=== PATIENT | female | born 1985 | race African-American/Black ===

== ENCOUNTER 2020-03-13 07:35 | Inpatient (IN) | payer MEDICARE, MEDICAID ==
[2020-03-13 08:59] LABS: HEMATOCRIT 29.3 % (36.0-47.0); HEMOGLOBIN 9.8 g/dL (12.0-15.5); MEAN CORPUSCULAR HEMOGLOBIN 29.5 pg (27.0-33.4); MEAN CORPUSCULAR HGB CONC 33.3 g/dL (32.0-36.0); MEAN CORPUSCULAR VOLUME 89 fl (80-97); RED CELL DISTRIBUTION WIDTH 15.6 % (11.5-14.0); WHITE BLOOD COUNT 14.6 10^3/uL (4.0-10.5)
[2020-03-13 09:13] LABS: ALBUMIN 4.5 g/dL (3.5-5.0); ALKALINE PHOSPHATASE 129 U/L (38-126); ASPARTATE AMINO TRANSFERASE 20 U/L (14-36); BLOOD UREA NITROGEN 51 mg/dL (7-20); CARBON DIOXIDE 17 mmol/L (22-30)
[2020-03-13 09:17] LABS: BILIRUBIN,DIRECT 0.5 mg/dL (0.0-0.4); BILIRUBIN,TOTAL 0.8 mg/dL (0.2-1.3); CALCIUM 8.7 mg/dL (8.4-10.2); GLUCOSE 160 mg/dL (75-110); POTASSIUM 4.8 mmol/L (3.6-5.0)
[2020-03-13 09:23] LABS: ABSOLUTE LYMPHOCYTES# (MANUAL) 0.1 10^3/uL (0.5-4.7); ABSOLUTE MONOCYTES # (MANUAL) 0.1 10^3/uL (0.1-1.4); BASOPHILS % (MANUAL) 0 % (0-2); EOSINOPHILS % (MANUAL) 0 % (0-6); LYMPHOCYTES % (MANUAL) 1 % (13-45); MONOCYTES % (MANUAL) 1 % (3-13); SEGMENTED NEUTROPHILS % (MAN) 98 % (42-78); TOTAL CELLS COUNTED 100
[2020-03-13 09:24] LABS: ANISOCYTOSIS SLIGHT
[2020-03-13 09:25] LABS: BURR CELLS SLIGHT; PLATELET CLUMPS PRESENT; PLATELET COMMENT ADEQUATE; POIKILOCYTOSIS SLIGHT; POLYCHROMASIA SLIGHT
[2020-03-13 09:26] LABS: PLATELET COUNT 290 10^3/uL (150-450)
--- NOTE | 2020-03-13 09:31 | RADIOLOGY REPORT (SQ) ---
EXAM DESCRIPTION: CHEST SINGLE VIEW IMAGES COMPLETED DATE/TIME: 03/13/2020 9:18 am REASON FOR STUDY: cough COMPARISON: None. EXAM PARAMETERS: NUMBER OF VIEWS: One view. TECHNIQUE: Single frontal radiographic view of the chest acquired. RADIATION DOSE: NA LIMITATIONS: None. FINDINGS: LUNGS AND PLEURA: Multifocal bibasilar predominant consolidation ground-glass attenuation, left greater than right. No significant effusion. No pneumothorax. MEDIASTINUM AND HILAR STRUCTURES: No masses. Contour normal. HEART AND VASCULAR STRUCTURES: Borderline enlarged, likely accentuated by portable technique. BONES: No acute findings. HARDWARE: Right axillary surgical clips. OTHER: No other significant finding. IMPRESSION: Bibasilar predominant consolidation and ground-glass attenuation which may represent jerson ma or multifocal infectious/inflammatory process of which viral pneumonia (Covid-19) is a considerati on. Findings discussed with Dr. Ramirez at 0925 hours on 03/13/2020. TECHNICAL DOCUMENTATION: JOB ID: [id number] 2010 [employer]- All Rights Reserved Reading location - IP/workstation name: [email or web address]
[2020-03-13 09:38] LABS: CHLORIDE 102 mmol/L (98-107)
[2020-03-13 09:43] LABS: ANION GAP 21 (5-19)
[2020-03-13] MEDS ORDERED: NITROGLYCERIN 2% OINTMENT 1 GM PACKET TP ONE (09:44)
--- NOTE | 2020-03-13 10:21 | ER Document Report ---
Entered by PARISH CATALAN SCRIBE 03/13/20 0944 Acting as scribe for:JASSON MARRERO MD ED Respiratory Problem - General Chief Complaint: Shortness Of Breath Stated Complaint: SHORTNESS OF BREATH Time Seen by Provider: 03/13/20 09:10 Mode of Arrival: Ambulatory Information source: Patient Notes: This 34 year old female patient presents to the emergency department today with complaints of shortness of breath since last night. Patient states that she also developed nausea and vomiting last night when the shortness of breath began. Patient states that she has also has had left sided facial swelling and pain and she was told it was an abscess and she was supposed to call the dentist today but she did not do that. Patient is a M/W/F dialysis patient and she has not yet been dialyzed today. She was sent here from dialysis this morning. The patient gave registration her current name, therefore all her old records cannot be accessed through this chart. Her previous name was Arianna Sutton . - Related Data Allergies/Adverse Reactions: hydrocodone [From Vicodin] Allergy (Verified 03/13/20 07:58) Past Medical History - General Information source: Patient - Social History Smoking Status: Never Smoker Cigarette use (# per day): No Chew tobacco use (# tins/day): No Frequency of alcohol use: None Drug Abuse: None Lives with: Family Family History: Reviewed & Not Pertinent Patient has homicidal ideation: No Renal/ Medical History: Reports: Hx End Stage Renal Disease Surgical Hx: Negative Review of Systems - Review of Systems Constitutional: No symptoms reported EENT: See HPI, Mouth pain, Mouth swelling, Dental problem Cardiovascular: No symptoms reported Respiratory: See HPI, Short of breath Gastrointestinal: See HPI, Nausea, Vomiting Genitourinary: No symptoms reported Female Genitourinary: No symptoms reported Musculoskeletal: No symptoms reported Skin: No symptoms reported Hematologic/Lymphatic: No symptoms reported Neurological/Psychological: No symptoms reported -: Yes All other systems reviewed and negative Physical Exam - Vital signs Vitals: Temp 99.4 F 03/13/20 07:48 - Notes Notes: Physical Exam: General: Alert, anxious, appears short of breath but is able to speak in multi- word sentences. HEENT: Normocephalic. Atraumatic. PERRL. Extraocular movements intact. Oropharynx clear. Area of induration consistent with abscess to left lower jaw below the premolar gumline. There is associated facial swelling over this area. Neck: Supple. Non-tender. Respiratory: Moderate respiratory distress. Diminished at the bases bilaterally. Cardiovascular: Tachycardic, regular rhythm. Abdominal: Normal Inspection. Non-tender. No distension. Normal Bowel Sounds. Back: No gross abnormalities. Extremities: Moves all four extremities. Upper extremities: Normal inspection. Normal ROM. Lower extremities: Normal inspection. No edema. Normal ROM. Neurological: Normal cognition. AAOx4. Normal speech. Psychological: anxious Skin: Warm. Dry. Normal color. Course - Re-evaluation Re-evalutation: 03/13/20 09:48 On initial exam, the patient is tachycardic, hypertensive, has a pulse ox of 95% on 5 L nasal cannula. The patient does have a fluctuant abscess in her left lower gumline under the premolars. It is easily accessible for drainage with an 18-gauge needle, but th e patient refuses to allow this to be done. Nurses have made multiple attempts for IV access, but cannot get any catheters to flush. The chest x-ray radiology impression was bibasilar predominant consolidation and groundglass attenuation which may represent edema, or multifocal infectious/inflammatory process of which viral pneumonia (COVID-19) is a consideration. I did discuss the case with Dr. Nance to make him aware of the patient and her status. He requested that she be admitted to the ICU, and he will arrange dialysis. I next spoke with Dr. Raymundo the ICU typing section chief. He wanted to see the patient before making any decisions about admission status. I did ask if he would help with IV access, as I am not trained in ultrasound guided vascular access. Dr. Raymundo said he would be happy to come see the patient and evaluate her. In the interim, I am having the nurse apply nitroglycerin ointment to help with the patient's blood pressure, and possible pulmonary edema. - Vital Signs Vital signs: Temp Pulse Resp BP Pulse Ox 101.3 F H 34 H 168/101 H 91 L 03/13/20 12:00 03/13/20 12:30 03/13/20 12:30 03/13/20 12:30 - Laboratory Result Diagrams: 03/13/20 08:20 03/13/20 08:20 Laboratory results interpreted by me: 03/13/20 03/13/20 03/13/20 08:20 08:20 11:45 WBC 14.6 H RBC 3.30 L Hgb 9.8 L Hct 29.3 L RDW 15.6 H Seg Neuts % (Manual) 98 H Lymphocytes % (Manual) 1 L Monocytes % (Manual) 1 L Abs Neuts (Manual) 14.3 H Abs Lymphs (Manual) 0.1 L Carbon Dioxide 17 L Anion Gap 21 H BUN 51 H Creatinine 12.56 H Est GFR ( Amer) 4 L Est GFR (MDRD) Non-Af 3 L Glucose 160 H Direct Bilirubin 0.5 H Alkaline Phosphatase 129 H NT-Pro-B Natriuret Pep 80721 H - Diagnostic Test Radiology reviewed: Image reviewed, Reports reviewed - Chest x-ray shows bibasilar predominant consolidation and groundglass attenuation which may represent edema or multifocal infectious/inflammatory process of which viral pneumonia (COVID19) is a consideration. - EKG Interpretation by Me EKG shows normal: Sinus rhythm, [place], Intervals, QRS Complexes, ST-T Waves Rate: Tachycardia - 114 P Waves: LAE Critical Care Note - Critical Care Note Total time excluding time spent on procedures (mins): 45 Comments: At least 45 minutes spent examining the patient, reviewing records, reevaluating the patient, and sorting out the confusion over her registering under multiple names. Discussions with Dr. Nance, Dr. Raymundo, Dr. Bocanegra, and Dr. Chapman. The patient will be initially admitted to the intensive care unit to get her dialysis done, and then moved to the intermediate care unit. Rapid COVID testing will be done prior to the patient leaving the intensive care unit. Discharge - Discharge Clinical Impression: Respiratory distress, ESRD (end stage renal disease) on dialysis, Dental abscess, Aspiration pneumonia due to inhalation of vomitus, Suspected COVID-19 virus infection Pneumonia Qualifiers: Pneumonia type: due to unspecified organism Laterality: bilateral Lung location: unspecified part of lung Qualified Code(s): J18.9 - Pneumonia, unspecified organism Sepsis Qualifiers: Sepsis type: sepsis due to unspecified organism Sepsis acute organ dysfunction status: with acute organ dysfunction Severe sepsis acute organ dysfunction type: acute respiratory failure Acute respiratory failure type: with hypoxia Severe sepsis shock status: without septic shock Qualified Code(s): A41.9 - Sepsis, unspecified organism; R65.20 - Severe sepsis without septic shock; J96.01 - Acute respiratory failure with hypoxia Nausea and vomiting Qualifiers: Vomiting type: unspecified Vomiting Intractability: non-intractable Qualified Code(s): R11.2 - Nausea with vomiting, unspecified Fever Qualifiers: Fever type: unspecified Qualified Code(s): R50.9 - Fever, unspecified Condition: Fair Disposition: ADMITTED INPATIENT Admitting Provider: Ari (Hospitalist) Unit Admitted: IMCU I personally performed the services described in the documentation, reviewed and edited the documentation which was dictated to the scribe in my presence, and it accurately records my words and actions.
[2020-03-13] MEDS ORDERED: AZITHROMYCIN INJ 500 MG VIAL IV ONE (10:34)
[2020-03-13] MEDS ORDERED: ONDANSETRON HCL INJ/PF 4 MG/2 ML SDV IV ONE (10:34)
[2020-03-13] MEDS ORDERED: LORAZEPAM INJ 2 MG/1 ML VIAL IV ONE (10:34)
[2020-03-13] MEDS ORDERED: CEFTRIAXONE 1 GM/D5W RTU 1 GM/50 ML RTUPB IV ONE (10:35)
--- NOTE | 2020-03-13 10:43 | EKG REPORT ---
SEVERITY:- BORDERLINE ECG - SINUS TACHYCARDIA PROBABLE LEFT ATRIAL ABNORMALITY : Confirmed by: Hugo Lebron MD 13-Mar-2020 10:42:56
[2020-03-13] MEDS: HYDRALAZINE HCL INJ/PF 20 MG/1 ML SDV IV PRN (12:10)
[2020-03-13] MEDS ORDERED: ONDANSETRON HCL INJ/PF 4 MG/2 ML SDV IV PRN (12:15)
[2020-03-13] MEDS ORDERED: ACETAMINOPHEN 325 MG TABLET PO ONE (12:16)
[2020-03-13] MEDS ORDERED: BENZONATATE 100 MG CAPSULE PO ONE (12:24)
--- NOTE | 2020-03-13 12:25 | PDOC CRITICAL CARE PROG REPORT ---
General Date:: 03/13/20 Hospital Day:: 1 Resuscitation Status: Full Code Events in the past 12 to 24 Hours:: SOB, probable aspiration and needs HD Review of systems relevant to events:: Pulmonary, renal. Reason for ICU Addmission:: Evaluation. - Medications: Medications reviewed and adjusted accordingly: Yes Vasopressors:: None Sedation:: None Physical Exam Vital Signs: Temp Pulse Resp BP Pulse Ox 99.4 F 25 H 195/101 H 91 L 03/13/20 07:49 03/13/20 10:36 03/13/20 10:36 03/13/20 10:36 Intake & Output 03/12/20 03/13/20 03/14/20 06:59 06:59 06:59 Weight 80.9 kg Weight/Height Weight 80.9 kg Height 5 ft 5 in General appearance: PRESENT: mild distress Head exam: PRESENT: atraumatic, normocephalic Eye exam: PRESENT: conjunctiva pink, EOMI, PERRLA. ABSENT: scleral icterus Ear exam: PRESENT: normal external ear exam Mouth exam: PRESENT: moist, tongue midline Respiratory exam: PRESENT: crackles, decreased breath sounds Cardiovascular exam: PRESENT: tachycardia GI/Abdominal exam: PRESENT: normal bowel sounds, soft. ABSENT: distended, guarding, mass, organolmegaly, rebound, tenderness Rectal exam: PRESENT: deferred Extremities exam: PRESENT: full ROM. ABSENT: calf tenderness, clubbing, pedal edema Neurological exam: PRESENT: alert, awake, oriented to person, oriented to place, oriented to time, oriented to situation, CN II-XII grossly intact. ABSENT: motor sensory deficit Psychiatric exam: PRESENT: anxious Skin exam: PRESENT: dry, intact, warm. ABSENT: cyanosis, rash Laboratory/Radiographs Laboratory Results: 03/13/20 08:20 03/13/20 08:20 03/13/20 03/13/20 03/13/20 08:20 08:20 08:20 WBC 14.6 H RBC 3.30 L Hgb 9.8 L Hct 29.3 L MCV 89 MCH 29.5 MCHC 33.3 RDW 15.6 H Plt Count 290 Seg Neutrophils % Not Reportable Sodium 140.4 Potassium 4.8 Chloride 102 Carbon Dioxide 17 L Anion Gap 21 H BUN 51 H Creatinine 12.56 H Est GFR ( Amer) 4 L Glucose 160 H Lactic Acid 1.0 Calcium 8.7 Total Bilirubin 0.8 AST 20 Alkaline Phosphatase 129 H Total Protein 8.0 Albumin 4.5 Impressions: Chest X-Ray 03/13/20 07:56 IMPRESSION: Bibasilar predominant consolidation and ground-glass attenuation which may represent edema or multifocal infectious/inflammatory process of which viral pneumonia (Covid-19) is a consideration. Findings discussed with Dr. Ramirez at 0925 hours on 03/13/2020. All labs, radiographs, diagnostic studies and EKGs were personally reviewed: Yes In addition, reports of radiographic and diagnostic studies were read: Yes Assessment and Plan Plan Summary: At this point the ptient needs dialysis. She probably aspirated as well with all the vomiting she did last night. I doubt COVID. She is very anxious as well. All of this is contributing to both subjective and objective SOB. More than anything she needs HD. I have talked to Dr. Nance and due to the difficult logistics she can be dialysed in the ICU then transferred. She is not in need of the ICU right now. She is on nasal canulla. Should she require intubation if her aspiration worsens than a reconsult would be warranted. Critical Time Critical Time (minutes): 30 Level of Care: IMCU Anticipated discharge: Home Within: Other -: 1. The care of a critical patient is a dynamic process. This note is a union representative synopsis but static in nature. The timeframe for treatments given in order is not necessarily the actual time these treatments may have been done. 2. This patient requires critical care secondary to ongoing requirements for therapy not offered or safe outside the critical care environment. Transfer to a lower level of care will result in altered life or limb morbidity and mortality. 3. Multidisciplinary rounds completed. 4. ABCDE bundle addressed.
[2020-03-13] MEDS: ACETAMINOPHEN 325 MG TABLET PO PRN ×2 (12:30→21:20)
--- NOTE | 2020-03-13 12:31 | PDOC H&P ---
History of Present Illness History of Present Illness: CALLY SINGH is a 34 year old female with a history of hypertension and ESRD who said that she was in her usual state of health until Friday. She said that she noticed some pain and swelling in her left lower jaw had been increasing over a few days. She is not had any fevers. She is not noticed any drainage, but she noted that it was getting more difficult to chew on that side. She said she started to get sick to her stomach yesterday and was feeling worse as the day went on. She said she vomited several times last night and she choked on her vomit at one point last night during a particularly nasty episode. She was short of breath at dialysis and hypertensive today. She says she is not taking her medicines in the past couple of days because she felt sick to her stomach. She said she went to dialysis this morning and they sent her to the ER. She said that at dialysis she was only 0.1 pounds over her dry weight this morning. In the ER she was very hypertensive with her blood pressures in the 190s over 100s. She denies any chest pain. She was a little hypoxic and was put on 2 L per nasal cannula. She was noted to have multiple hazy opacities on chest x-ray and a very broad differential was given. She has not been around anyone that she knows to be sick. She said she was only around her family this weekend and none of them displayed any symptoms of any illness. Past Medical History Renal/ Medical History: Reports: End Stage Renal Disease Social History Lives with: Family Smoking Status: Never Smoker Electronic Cigarette use?: No - Advance Directive Resuscitation Status: Full Code Family History Family History: Reviewed & Not Pertinent, COPD, Hyperlipidemia, Hypertension, Thyroid Disfunction Parental Family History Reviewed: Yes Children Family History Reviewed: Yes Sibling(s) Family History Reviewed.: Yes Medication/Allergy Allergies/Adverse Reactions: hydrocodone [From Vicodin] Allergy (Verified 03/13/20 07:58) Review of Systems All systems: reviewed and no additional remarkable complaints except as stated - All systems were reviewed and were negative except as noted in the HPI Physical Exam Vital Signs: Temp Pulse Resp BP Pulse Ox 101.3 F H 27 H 176/95 H 88 L 03/13/20 12:00 03/13/20 12:00 03/13/20 12:00 03/13/20 12:00 Intake & Output 03/12/20 03/13/20 03/14/20 06:59 06:59 06:59 Intake Total 50 Balance 50 Weight 80.9 kg General appearance: PRESENT: no acute distress, cooperative, disheveled, obese, other - Looks fatigued Head exam: PRESENT: atraumatic, normocephalic Eye exam: PRESENT: EOMI, PERRLA. ABSENT: conjunctival injection, nystagmus, scleral icterus Ear exam: PRESENT: normal external ear exam Mouth exam: PRESENT: dry mucosa, neck supple Teeth exam: PRESENT: other - Tenderness and facial swelling over her left mandible Throat exam: ABSENT: post pharyngeal erythema Neck exam: PRESENT: full ROM. ABSENT: carotid bruit, JVD, lymphadenopathy, meningismus, tenderness, thyromegaly Respiratory exam: PRESENT: rhonchi, symmetrical, tachypnea, unlabored. ABSENT: accessory muscle use, chest wall tenderness, crackles, prolonged expiratory phas, wheezes Cardiovascular exam: PRESENT: +S1, +S2, tachycardia Pulses: PRESENT: normal carotid pulses Vascular exam: PRESENT: normal capillary refill GI/Abdominal exam: PRESENT: normal bowel sounds, soft. ABSENT: distended, guarding, rebound, tenderness Extremities exam: ABSENT: clubbing, pedal edema Musculoskeletal exam: PRESENT: normal inspection. ABSENT: deformity Neurological exam: PRESENT: alert, awake, oriented to person, oriented to place, oriented to time, oriented to situation, CN II-XII grossly intact. ABSENT: motor sensory deficit Psychiatric exam: PRESENT: flat affect Skin exam: PRESENT: dry, warm Results Laboratory Results: 03/13/20 08:20 03/13/20 08:20 03/13/20 03/13/20 03/13/20 08:20 08:20 08:20 WBC 14.6 H RBC 3.30 L Hgb 9.8 L Hct 29.3 L MCV 89 MCH 29.5 MCHC 33.3 RDW 15.6 H Plt Count 290 Seg Neutrophils % Not Reportable Sodium 140.4 Potassium 4.8 Chloride 102 Carbon Dioxide 17 L Anion Gap 21 H BUN 51 H Creatinine 12.56 H Est GFR ( Amer) 4 L Glucose 160 H Lactic Acid 1.0 Calcium 8.7 Total Bilirubin 0.8 AST 20 Alkaline Phosphatase 129 H Total Protein 8.0 Albumin 4.5 03/13/20 03/13/20 09:33 09:33 Creatine Kinase 120 Troponin I Cancelled NT-Pro-B Natriuret Pep Cancelled Impressions: Chest X-Ray 03/13/20 07:56 IMPRESSION: Bibasilar predominant consolidation and ground-glass attenuation which may represent edema or multifocal infectious/inflammatory process of which viral pneumonia (Covid-19) is a consideration. Findings discussed with Dr. Ramirez at 0925 hours on 03/13/2020. Assessment and Plan - Diagnosis (1) Sepsis Qualifiers: Sepsis type: sepsis due to unspecified organism Sepsis acute organ dysfunction status: with acute organ dysfunction Severe sepsis acute organ dysfunction type: acute respiratory failure Acute respiratory failure type: with hypoxia Severe sepsis shock status: without septic shock Qualified Code(s): A41.9 - Sepsis, unspecified organism; R65.20 - Severe sepsis without septic shock; J96.01 - Acute respiratory failure with hypoxia Is this a current diagnosis for this admission?: Yes Plan: Due to a combination of things, namely her dental abscess and her aspiration pneumonia. I think she probably started getting sick from the dental abscess which caused her to have nausea and vomiting which caused the subsequent aspiration pneumonia. Because of her hypertension and respiratory issues we did not think that she needed a large fluid bolus. She is going to hemodialysis and she should be able to have any volume issues managed there. She was very close to her dry weight so I do not think she is dehydrated. I have started her empirically on Zosyn. We will monitor her organ function closely. (2) Aspiration pneumonia due to inhalation of vomitus Is this a current diagnosis for this admission?: Yes Plan: Initiated Zosyn. Will monitor respiratory status closely. (3) Nausea and vomiting Qualifiers: Vomiting type: unspecified Vomiting Intractability: non-intractable Qu alified Code(s): R11.2 - Nausea with vomiting, unspecified Is this a current diagnosis for this admission?: Yes Plan: PRN Zofran (4) Dental abscess Is this a current diagnosis for this admission?: Yes Plan: This should respond to Zosyn. We will have her follow-up with her dentist as an outpatient. (5) ESRD (end stage renal disease) on dialysis Is this a current diagnosis for this admission?: Yes Plan: Nephrology has been consulted for hemodialysis. (6) Hypertensive emergency Is this a current diagnosis for this admission?: Yes Plan: She has not had her blood pressure medications in a couple of days and so how much of what we are seeing on her chest x-ray is due to this is unclear because there are compounding factors. She is going to hemodialysis and we will get her started back on her oral medications. We also have PRN hydralazine. - Time Time Spent with patient: 35 or more minutes - Inpatient Certification Based on my medical assessment, after consideration of the patient's comorbidities, presenting symptoms, or acuity I expect that the services needed warrant INPATIENT care.: Yes I certify that my determination is in accordance with my understanding of Medicare's requirements for reasonable and necessary INPATIENT services [42 CFR 412.3e].: Yes Medical Necessity: Significant Comorbidiites Make Outpatient Treatment Too Risky, Need Close Monitoring Due to Risk of Patient Decompensation, Need For Continuous Telemetry Monitoring, Need for IV Antibiotics, Risk of Complication if Not Cared For in Hospital
[2020-03-13 12:36] LABS: TROPONIN I 0.032 ng/mL
[2020-03-13] MEDS: HEPARIN SOD (PORCINE) 5,000 UNIT/ML 1 ML VIAL SUBCUT SCH ×2 (15:18→22:20)
[2020-03-13] MEDS: PIPERACILLIN SODIUM/TAZOBACTAM 2.25 GM in NORMAL SALINE 50 ML IV SCH ×2 (15:18→22:20)
--- NOTE | 2020-03-13 17:53 | PDOC CONSULTATION ---
Consultation Consult Date: 03/13/20 Provider Consulted: Bull SOLARES Consult reason:: esrd in CHF for urgent hd. History of Present Illness Admission Date/PCP: 03/13/20 12:57 History of Present Illness: CALLY SINGH is a 34 year old female with history of ESRD in the background of hypertension and unfortunate history of noncompliance with diet, medications, fluid and hemodialysis treatments was admitted with a history of progressive pain and swelling of her left lower jaw that has been getting worse over the last few days. No history of any headaches, fever or chills. She also found that she was getting rather weak and progressively short of breath when she went for dialysis today and therefore she was therefore asked to go to the ER where she has been admitted. Chest x-ray revealed that she had groundglass like opacities along with features suggestive of congestive heart failure. Differential diagnosis included congestive heart failure/possible COVID pneumonia even though she gives no history of any recent high risk behavior patterns. Dr. Ramirez at the ER attempted to do an I&D of her very obvious abscess in the left lower jaw but she refused. Currently she has been admitted to the ICU given the fact that her COVID serology was pending and she is being dialyzed. She is undergoing dialysis without any issues. Vital signs shows that the blood pressure is rather quite high. She admits to being very anxious. Dialysis orders were reviewed with the treating dialysis nurse. Labs and medications were reviewed. Past Medical History Cardiac Medical History: Reports: Hypertension-primary Renal/ Medical History: Reports: End Stage Renal Disease, Secondary Hyperparathyroidism Psychiatric Medical History: Denies: Depression Hematology Medical History: Reports Anemia of Chronic Kidney Disease Social History Lives with: Family Smoking Status: Never Smoker Electronic Cigarette use?: No - Advance Directive Resuscitation Status: Full Code Family History Parental Family History Reviewed: Yes - Father with CKD stage V in the background of hypertension. Children Family History Reviewed: No Sibling(s) Family History Reviewed.: No Medication/Allergy Home Medications: Amlodipine Besylate [Norvasc 10 mg Tablet] 10 mg PO DAILY 03/13/20 Clonidine [Catapres-Tts 3 (0.3 mg/24 Hr) Transderm Patch] 1 patch TOP ARTHUR@1000 03/13/20 Hydralazine HCl 100 mg PO Q12 03/13/20 Promethazine HCl [Phenergan 25 mg Tablet] 25 mg PO TIDP PRN 03/13/20 Allergies/Adverse Reactions: hydrocodone [From Vicodin] Allergy (Verified 03/13/20 07:58) Review of Systems Constitutional: PRESENT: anorexia, fatigue, weakness. ABSENT: chills, fever(s), headache(s), night sweats Ears: ABSENT: hearing changes Nose, Mouth, and Throat: PRESENT: other - Progressive pain and swelling of left lower jaw and evaluations revealed that she has an abscess. ABSENT: mouth pain, sore throat Cardiovascular: PRESENT: dyspnea on exertion. ABSENT: chest pain, edema Respiratory: PRESENT: dyspnea. ABSENT: cough, hemoptysis Gastrointestinal: PRESENT: nausea. ABSENT: abdominal pain, bloating, coffee ground emesis, diarrhea, dysphagia, heartburn, hematemesis, vomiting Genitourinary: ABSENT: dysuria, hematuria Musculoskeletal: ABSENT: deformity, joint swelling Integumentary: ABSENT: lesions, pruritus, rash Neurological: ABSENT: abnormal gait, abnormal movements, abnormal speech, confusion, convulsions, frequent falls Endocrine: ABSENT: polydipsia Hematologic/Lymphatic: ABSENT: easy bruising, lymphadenopathy Physical Exam Vital Signs: Temp Pulse Resp BP Pulse Ox 100.2 F 104 H 27 H 109/77 92 03/13/20 13:44 03/13/20 13:44 03/13/20 16:35 03/13/20 16:35 03/13/20 16:35 Intake & Output 03/12/20 03/13/20 03/14/20 06:59 06:59 06:59 Intake Total 1100 Output Total 4351 Balance -3251 Weight 79.3 kg General appearance: PRESENT: mild distress Eye exam: PRESENT: EOMI, PERRLA Ear exam: PRESENT: normal external ear exam Neck exam: ABSENT: lymphadenopathy, tenderness, thyromegaly Respiratory exam: PRESENT: clear to auscultation baudilio, crackles, decreased breath sounds. ABSENT: rhonchi Cardiovascular exam: PRESENT: +S1, +S2 GI/Abdominal exam: PRESENT: normal bowel sounds, soft. ABSENT: organomegaly, tenderness Extremities exam: ABSENT: pedal edema Neurological exam: PRESENT: alert, awake, oriented to person, oriented to place Psychiatric exam: PRESENT: anxious Skin exam: ABSENT: erythema, mottled, rash Results Laboratory Results: 03/13/20 08:20 03/13/20 08:20 03/13/20 03/13/20 03/13/20 08:20 08:20 08:20 WBC 14.6 H RBC 3.30 L Hgb 9.8 L Hct 29.3 L MCV 89 MCH 29.5 MCHC 33.3 RDW 15.6 H Plt Count 290 Seg Neutrophils % Not Reportable Sodium 140.4 Potassium 4.8 Chloride 102 Carbon Dioxide 17 L Anion Gap 21 H BUN 51 H Creatinine 12.56 H Est GFR ( Amer) 4 L Glucose 160 H Lactic Acid 1.0 Calcium 8.7 Total Bilirubin 0.8 AST 20 Alkaline Phosphatase 129 H Total Protein 8.0 Albumin 4.5 03/13/20 03/13/20 03/13/20 09:33 09:33 11:45 Creatine Kinase 120 Troponin I Cancelled 0.032 NT-Pro-B Natriuret Pep Cancelled [id number] H Impressions: Chest X-Ray 03/13/20 07:56 IMPRESSION: Bibasilar predominant consolidation and ground-glass attenuation which may represent edema or multifocal infectious/inflammatory process of which viral pneumonia (Covid-19) is a consideration. Findings discussed with Dr. Ramirez at 0925 hours on 03/13/2020. Assessment & Plan - Diagnosis (1) CHF (congestive heart failure) Plan: Radiological evaluations is suggestive of congestive heart failure without the differential diagnosis being aspiration. See how she responds to urgent hemodialysis. Monitor. (2) Dental abscess Is this a current diagnosis for this admission?: Yes Plan: Refused I&D in the ER. Currently on antibiotics. Will need dental evaluation with surgical intervention soon. Discussed risks of metastasis. (3) ESRD (end stage renal disease) on dialysis Is this a current diagnosis for this admission?: Yes Plan: Patient currently being seen while undergoing dialysis. Vital signs are stable but for high blood pressure. Dialysis is being supervised. Plan to remove between 3-4 L of fluid as tolerated. Dialysis orders were reviewed with the treating dialysis nurse. (4) Hypertensive emergency Is this a current diagnosis for this admission?: Yes Plan: See response to dialysis. Advised compliance with medications. (5) Suspected COVID-19 virus infection Plan: COVID PCR pending.
[2020-03-14] MEDS: ACETAMINOPHEN 325 MG TABLET PO PRN ×2 (04:39→22:04)
[2020-03-14] MEDS: PIPERACILLIN SODIUM/TAZOBACTAM 2.25 GM in NORMAL SALINE 50 ML IV SCH ×3 (05:26→22:05)
[2020-03-14] MEDS: HEPARIN SOD (PORCINE) 5,000 UNIT/ML 1 ML VIAL SUBCUT SCH ×3 (05:27→22:09)
[2020-03-14 06:37] LABS: BLOOD UREA NITROGEN 32 mg/dL (7-20); CALCIUM 8.5 mg/dL (8.4-10.2); CHLORIDE 96 mmol/L (98-107); GLUCOSE 184 mg/dL (75-110); POTASSIUM 3.9 mmol/L (3.6-5.0)
[2020-03-14 06:57] LABS: HEMATOCRIT 26.4 % (36.0-47.0); MEAN CORPUSCULAR HEMOGLOBIN 29.7 pg (27.0-33.4); MEAN CORPUSCULAR VOLUME 87 fl (80-97); PLATELET COUNT 248 10^3/uL (150-450); RED BLOOD COUNT 3.03 10^6/uL (3.72-5.28); RED CELL DISTRIBUTION WIDTH 15.2 % (11.5-14.0); WHITE BLOOD COUNT 8.4 10^3/uL (4.0-10.5)
[2020-03-14 07:11] LABS: ABSOLUTE LYMPHOCYTES# (MANUAL) 0.6 10^3/uL (0.5-4.7); ABSOLUTE MONOCYTES # (MANUAL) 0.3 10^3/uL (0.1-1.4); BASOPHILS % (MANUAL) 0 % (0-2); EOSINOPHILS % (MANUAL) 0 % (0-6); LYMPHOCYTES % (MANUAL) 7 % (13-45); MONOCYTES % (MANUAL) 3 % (3-13); SEGMENTED NEUTROPHILS % (MAN) 90 % (42-78); TOTAL CELLS COUNTED 100
[2020-03-14 07:12] LABS: ANISOCYTOSIS SLIGHT; OVALOCYTES SLIGHT
[2020-03-14 07:13] LABS: ANION GAP 14 (5-19); PLATELET COMMENT ADEQUATE
[2020-03-14 07:15] LABS: CARBON DIOXIDE 26 mmol/L (22-30)
[2020-03-14] MEDS: HYDRALAZINE HCL INJ/PF 20 MG/1 ML SDV IV PRN (11:35)
--- NOTE | 2020-03-14 12:06 | PDOC PROGRESS REPORT ---
Subjective Progress Note for:: 03/14/20 Subjective:: No adverse events overnight. No new complaints. She is feeling somewhat better than she did yesterday. She is trying to eat soft foods because it bothers her tooth. Breathing is been comfortable. Cough is improved. Reason For Visit: ASPIRATION PNEUMONIA,HYPERTENSIVE EMERGENCY,ESRD Physical Exam Vital Signs: Temp Pulse Resp BP Pulse Ox 97.9 F 85 16 171/89 H 100 03/14/20 11:23 03/14/20 11:23 03/14/20 11:23 03/14/20 11:23 03/14/20 11:23 Intake & Output 03/13/20 03/14/20 03/15/20 06:59 06:59 06:59 Intake Total 1628 Output Total 4351 Balance -2723 Weight 79.3 kg General appearance: PRESENT: no acute distress, cooperative, disheveled, obese, other - Reduced left-sided facial swelling of her left mandible Respiratory exam: PRESENT: rhonchi - Scattered, symmetrical, unlabored. ABSENT: accessory muscle use, chest wall tenderness, crackles, prolonged expiratory pha s, tachypnea, wheezes Cardiovascular exam: PRESENT: RRR, +S1, +S2 Pulses: PRESENT: normal carotid pulses Vascular exam: PRESENT: normal capillary refill GI/Abdominal exam: PRESENT: normal bowel sounds, soft. ABSENT: distended, guarding, rebound, tenderness Extremities exam: ABSENT: clubbing, pedal edema Musculoskeletal exam: PRESENT: normal inspection. ABSENT: deformity Neurological exam: PRESENT: alert, awake, oriented to person, oriented to place, oriented to time, oriented to situation Psychiatric exam: PRESENT: appropriate affect, normal mood Skin exam: PRESENT: dry, warm Results Laboratory Results: 03/14/20 05:54 03/14/20 05:54 03/14/20 03/14/20 05:54 05:54 WBC 8.4 RBC 3.03 L Hgb 9.0 L Hct 26.4 L MCV 87 MCH 29.7 MCHC 34.0 RDW 15.2 H Plt Count 248 Seg Neutrophils % Not Reportable Sodium 136.2 L Potassium 3.9 Chloride 96 L Carbon Dioxide 26 Anion Gap 14 BUN 32 H Creatinine 9.57 H Est GFR ( Amer) 6 L Glucose 184 H Calcium 8.5 03/13/20 09:55 Blood Blood Culture (PCR) - Final Streptococcus Species 03/13/20 03/13/20 03/13/20 09:33 09:33 11:45 Creatine Kinase 120 Troponin I Cancelled 0.032 NT-Pro-B Natriuret Pep Cancelled [id number] H Impressions: Chest X-Ray 03/13/20 07:56 IMPRESSION: Bibasilar predominant consolidation and ground-glass attenuation which may represent edema or multifocal infectious/inflammatory process of which viral pneumonia (Covid-19) is a consideration. Findings discussed with Dr. Ramirez at 0925 hours on 03/13/2020. Assessment and Plan - Diagnosis (1) Sepsis Qualifiers: Sepsis type: sepsis due to unspecified organism Sepsis acute organ dysfunction status: with acute organ dysfunction Severe sepsis acute organ dysfunction type: acute respiratory failure Acute respiratory failure type: with hypoxia Severe sepsis shock status: without septic shock Qualified Code(s): A41.9 - Sepsis, unspecified organism; R65.20 - Severe sepsis without septic shock; J96.01 - Acute respiratory failure with hypoxia Is this a current diagnosis for this admission?: Yes Plan: Due to aspiration pneumonia and dental abscess. Currently on Zosyn. Responding well. 1 of her blood cultures turned positive today. We will follow-up identification and susceptibility. (2) Aspiration pneumonia due to inhalation of vomitus Is this a current diagnosis for this admission?: Yes Plan: Continue Zosyn, hope to switch to Augmentin at discharge unless blood cultures dictate otherwise (3) Nausea and vomiting Qualifiers: Vomiting type: unspecified Vomiting Intractability: non-intractable Qualified Code(s): R11.2 - Nausea with vomiting, unspecified Is this a current diagnosis for this admission?: Yes Plan: Resolved (4) Dental abscess Is this a current diagnosis for this admission?: Yes Plan: Currently on Zosyn, hope to switch to Augmentin at discharge unless blood cultures dictate otherwise (5) ESRD (end stage renal disease) on dialysis Is this a current diagnosis for this admission?: Yes Plan: Nephrology consulted for hemodialysis (6) Hypertensive emergency Is this a current diagnosis for this admission?: Yes Plan: Resolved, continue home blood pressure medications - Time Time Spent with patient: 25-34 minutes
[2020-03-14] MEDS ORDERED: PROMETHAZINE HCL 25 MG TABLET PO PRN (15:48)
--- NOTE | 2020-03-14 19:04 | PDOC PROGRESS REPORT ---
Subjective Progress Note for:: 03/14/20 Reason For Visit: Feeling lots better. She is currently breathing on her own without any oxygen supplements. Denies any chest pain shortness of breath. No history of any fever chills. Labs and medications were reviewed. Blood cultures preliminary reports showing gram-positive cocci. She is on Pip - tazo. She still got left side of oral cavity hurting. Physical Exam Vital Signs: Temp Pulse Resp BP Pulse Ox 98.2 F 90 16 154/80 H 100 03/14/20 15:27 03/14/20 15:27 03/14/20 15:27 03/14/20 15:27 03/14/20 15:27 Intake & Output 03/13/20 03/14/20 03/15/20 06:59 06:59 06:59 Intake Total 1628 168 Output Total 4351 100 Balance -2723 68 Weight 79.3 kg General appearance: PRESENT: no acute distress Respiratory exam: PRESENT: clear to auscultation baudilio. ABSENT: crackles Cardiovascular exam: PRESENT: +S1, +S2 GI/Abdominal exam: PRESENT: normal bowel sounds, soft. ABSENT: organomegaly, tenderness Neurological exam: PRESENT: alert, awake, oriented to person, oriented to place Results Laboratory Results: 03/14/20 05:54 03/14/20 05:54 03/14/20 03/14/20 05:54 05:54 WBC 8.4 RBC 3.03 L Hgb 9.0 L Hct 26.4 L MCV 87 MCH 29.7 MCHC 34.0 RDW 15.2 H Plt Count 248 Seg Neutrophils % Not Reportable Sodium 136.2 L Potassium 3.9 Chloride 96 L Carbon Dioxide 26 Anion Gap 14 BUN 32 H Creatinine 9.57 H Est GFR ( Amer) 6 L Glucose 184 H Calcium 8.5 03/13/20 09:55 Blood Blood Culture (PCR) - Final Streptococcus Species 03/13/20 03/13/20 03/13/20 09:33 09:33 11:45 Creatine Kinase 120 Troponin I Cancelled 0.032 NT-Pro-B Natriuret Pep Cancelled [id number] H Impressions: Chest X-Ray 03/13/20 07:56 IMPRESSION: Bibasilar predominant consolidation and ground-glass attenuation which may represent edema or multifocal infectious/inflammatory process of which viral pneumonia (Covid-19) is a consideration. Findings discussed with Dr. Ramirez at 0925 hours on 03/13/2020. Assessment & Plan - Diagnosis (1) CHF (congestive heart failure) Plan: Currently resolved post ultrafiltration. (2) Dental abscess Is this a current diagnosis for this admission?: Yes Plan: Currently on IV antibiotics. Blood cultures showing preliminary growth with gram-positive cocci. Patient definitely feeling better. Planning for outpatient dental evaluation. (3) ESRD (end stage renal disease) on dialysis Is this a current diagnosis for this admission?: Yes Plan: Next dialysis is due for tomorrow pending discharge. 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 She can get antibiotics including vancomycin or the cephalosporins based on cultures as an outpatient at [facility]. (4) Hypertensive emergency Is this a current diagnosis for this admission?: Yes Plan: Resolved postdialysis. Monitor. (5) Suspected COVID-19 virus infection Plan: Covid negative.
[2020-03-14] MEDS ORDERED: (PENDING PHARMACY ID) (Hydralazine Hcl [Hydralazine Hcl] 100 MG) PO SCH (22:00)
[2020-03-14] MEDS ORDERED: HYDRALAZINE HCL 50 MG TABLET PO SCH (22:00)
[2020-03-15] MEDS: HEPARIN SOD (PORCINE) 5,000 UNIT/ML 1 ML VIAL SUBCUT SCH (05:19)
[2020-03-15] MEDS: PIPERACILLIN SODIUM/TAZOBACTAM 2.25 GM in NORMAL SALINE 50 ML IV SCH (05:19)
[2020-03-15 05:40] LABS: ABSOLUTE EOSINOPHILS # (AUTO) 0.5 10^3/uL (0.0-0.6); ABSOLUTE LYMPHOCYTES (AUTO) 0.7 10^3/uL (0.5-4.7); ABSOLUTE MONOCYTES (AUTO) 0.3 10^3/uL (0.1-1.4); BASOPHILS % (AUTO) 0.7 % (0-2); EOSINOPHILS % (AUTO) 7.5 % (0-6); HEMATOCRIT 27.5 % (36.0-47.0); HEMOGLOBIN 9.4 g/dL (12.0-15.5); LYMPHOCYTES % (AUTO) 10.4 % (13-45); MEAN CORPUSCULAR HEMOGLOBIN 29.8 pg (27.0-33.4); MEAN CORPUSCULAR HGB CONC 34.1 g/dL (32.0-36.0); MEAN CORPUSCULAR VOLUME 87 fl (80-97); PLATELET COUNT 259 10^3/uL (150-450); RED BLOOD COUNT 3.16 10^6/uL (3.72-5.28); RED CELL DISTRIBUTION WIDTH 15.3 % (11.5-14.0); SEGMENTED NEUTROPHILS % (AUTO) 76.4 % (42-78); TOTAL CELLS COUNTED % (AUTO) 100 %; WHITE BLOOD COUNT 6.5 10^3/uL (4.0-10.5)
[2020-03-15 06:11] LABS: ANION GAP 15 (5-19)
[2020-03-15 06:43] LABS: BLOOD UREA NITROGEN 49 mg/dL (7-20); CALCIUM 8.4 mg/dL (8.4-10.2); CARBON DIOXIDE 25 mmol/L (22-30); CHLORIDE 96 mmol/L (98-107); GLUCOSE 122 mg/dL (75-110)
[2020-03-15] MEDS: ACETAMINOPHEN 325 MG TABLET PO PRN (08:00)
[2020-03-15 09:05] VITALS: BP 157/83
[2020-03-15] MEDS ORDERED: AMLODIPINE BESYLATE 10 MG TABLET PO SCH (10:00)
--- NOTE | 2020-03-15 15:59 | PDOC DISCHARGE SUMMARY ---
Impression - Admit/DC Date/PCP Admission Date/Primary Care Provider: 03/13/20 12:57 Bull SOLARES MD Discharge Date: 03/15/20 - Discharge Diagnosis (1) Sepsis Is this a current diagnosis for this admission?: Yes (2) Aspiration pneumonia due to inhalation of vomitus Is this a current diagnosis for this admission?: Yes (3) Nausea and vomiting Is this a current diagnosis for this admission?: Yes (4) Dental abscess Is this a current diagnosis for this admission?: Yes (5) ESRD (end stage renal disease) on dialysis Is this a current diagnosis for this admission?: Yes (6) Hypertensive emergency Is this a current diagnosis for this admission?: Yes - Additional Information Resuscitation Status: Full Code Discharge Diet: Cardiac Discharge Activity: Slowly Increase Activity [facility]16/[facility] 3:30 pm Bull SOLARES MD [Primary Care Provider] - 03/15/20 10:30 am (*Patient will be seen at [facility] on dialysis day*) Prescriptions: Amox Tr/Potassium Clavulanate [Augmentin 500-125 Tablet] 1 each PO DAILY #5 tablet Home Medications: Amlodipine Besylate [Norvasc 10 mg Tablet] 10 mg PO DAILY 03/13/20 Clonidine [Catapres-Tts 3 (0.3 mg/24 Hr) Transderm Patch] 1 patch TOP ARTHUR@1000 03/13/20 Hydralazine HCl 100 mg PO Q12 03/13/20 Promethazine HCl [Phenergan 25 mg Tablet] 25 mg PO TIDP PRN 03/13/20 Acetaminophen [Tylenol 325 mg Tablet] 650 mg PO Q4HP PRN tablet 03/15/20 Amox Tr/Potassium Clavulanate [Augmentin 500-125 Tablet] 1 each PO DAILY #5 tablet 03/15/20 History of Present Illiness History of Present Illness: CALLY SINGH is a 34 year old female with a history of hypertension and ESRD who said that she was in her usual state of health until Friday. She said that she noticed some pain and swelling in her left lower jaw had been increasing over a few days. She is not had any fevers. She is not noticed any drainage, but she noted that it was getting more difficult to chew on that side. She said she started to get sick to her stomach yesterday and was feeling worse as the day went on. She said she vomited several times last night and she choked on her vomit at one point last night during a particularly nasty episode. She was short of breath at dialysis and hypertensive today. She says she is not taking her medicines in the past couple of days because she felt sick to her stomach. She said she went to dialysis this morning and they sent her to the ER. She said that at dialysis she was only 0.1 pounds over her dry weight this morning. In the ER she was very hypertensive with her blood pressures in the 190s over 100s. She denies any chest pain. She was a little hypoxic and was put on 2 L per nasal cannula. She was noted to have multiple hazy opacities on chest x-ray and a very broad differential was given. She has not been around anyone that she knows to be sick. She said she was only around her family this weekend and none of them displayed any symptoms of any illness. Hospital Course Hospital Course: She improved rapidly on IV antibiotics. She was afebrile after her first hospital evening. She received dialysis without complications. ER tested her for coronavirus and she ruled out as expected. She had improvement in her facial pain and swelling. She is going to continue on Augmentin as an outpatient and she has close follow-up with her dentist. She will resume dialysis on her usual schedule. After she left 1 of her blood cultures turn positive. We will follow-up on this blood culture to see if it is a contaminant, we will let her know if she needs to come back in to have any further evaluation. Her labs and examination were reassuring and she was discharged in stable condition. Physical Exam Vital Signs: Temp Pulse Resp BP Pulse Ox 98.0 F 84 16 157/83 H 97 03/15/20 09:03 03/15/20 09:03 03/15/20 09:03 03/15/20 09:03 03/15/20 09:03 Intake & Output 03/14/20 03/15/20 03/16/20 06:59 06:59 06:59 Intake Total 1628 268 Output Total 4351 100 Balance -2723 168 Weight 79.3 kg 78 kg General appearance: PRESENT: no acute distress, cooperative, disheveled, obese, other - Reduced left-sided facial swelling of her left mandible Respiratory exam: PRESENT: rhonchi - Scattered, symmetrical, unlabored. ABSENT: accessory muscle use, chest wall tenderness, crackles, prolonged expiratory phas, tachypnea, wheezes Cardiovascular exam: PRESENT: RRR, +S1, +S2 Pulses: PRESENT: normal carotid pulses Vascular exam: PRESENT: normal capillary refill GI/Abdominal exam: PRESENT: normal bowel sounds, soft. ABSENT: distended, guarding, rebound, tenderness Extremities exam: ABSENT: clubbing, pedal edema Musculoskeletal exam: PRESENT: normal inspection. ABSENT: deformity Neurological exam: PRESENT: alert, awake, oriented to person, oriented to place, oriented to time, oriented to situation Psychiatric exam: PRESENT: appropriate affect, normal mood Skin exam: PRESENT: dry, warm Results Laboratory Results: WBC 6.5 10^3/uL (4.0-10.5) 03/15/20 05:30 RBC 3.16 10^6/uL (3.72-5.28) L 03/15/20 05:30 Hgb 9.4 g/dL (12.0-15.5) L 03/15/20 05:30 Hct 27.5 % (36.0-47.0) L 03/15/20 05:30 MCV 87 fl (80-97) 03/15/20 05:30 MCH 29.8 pg (27.0-33.4) 03/15/20 05:30 MCHC 34.1 g/dL (32.0-36.0) 03/15/20 05:30 RDW 15.3 % (11.5-14.0) H 03/15/20 05:30 Plt Count 259 10^3/uL (150-450) 03/15/20 05:30 Lymph % (Auto) 10.4 % (13-45) L 03/15/20 05:30 [place] % (Auto) 5.0 % (3-13) 03/15/20 05:30 Eos % (Auto) 7.5 % (0-6) H 03/15/20 05:30 Baso % (Auto) 0.7 % (0-2) 03/15/20 05:30 Absolute Neuts (auto) 5.0 10^3/uL (1.7-8.2) 03/15/20 05:30 Absolute Lymphs (auto) 0.7 10^3/uL (0.5-4.7) 03/15/20 05:30 Absolute Monos (auto) 0.3 10^3/uL (0.1-1.4) 03/15/20 05:30 Absolute Eos (auto) 0.5 10^3/uL (0.0-0.6) 03/15/20 05:30 Absolute Basos (auto) 0.0 10^3/uL (0.0-0.2) 03/15/20 05:30 Total Counted 100 03/14/20 05:54 Seg Neutrophils % 76.4 % (42-78) 03/15/20 05:30 Seg Neuts % (Manual) 90 % (42-78) H 03/14/20 05:54 Lymphocytes % (Manual) 7 % (13-45) L 03/14/20 05:54 Monocytes % (Manual) 3 % (3-13) 03/14/20 05:54 Eosinophils % (Manual) 0 % (0-6) 03/14/20 05:54 Basophils % (Manual) 0 % (0-2) 03/14/20 05:54 Abs Neuts (Manual) 7.6 10^3/uL (1.7-8.2) 03/14/20 05:54 Abs Lymphs (Manual) 0.6 10^3/uL (0.5-4.7) 03/14/20 05:54 Abs Monocytes (Manual) 0.3 10^3/uL (0.1-1.4) 03/14/20 05:54 Absolute Eos (Manual) 0.0 10^3/uL (0.0-0.6) 03/14/20 05:54 Abs Basophils (Manual) 0.0 10^3/uL (0.0-0.2) 03/14/20 05:54 Clumped Platelets PRESENT 03/13/20 08:20 Platelet Comment ADEQUATE 03/14/20 05:54 Polychromasia SLIGHT 03/13/20 08:20 Poikilocytosis SLIGHT 03/13/20 08:20 Anisocytosis SLIGHT 03/14/20 05:54 Ovalocytes SLIGHT 03/14/20 05:54 [place] Cells SLIGHT 03/13/20 08:20 Sodium 136.3 mmol/L (137-145) L 03/15/20 05:30 Potassium 4.0 mmol/L (3.6-5.0) 03/15/20 05:30 Chloride 96 mmol/L (98-107) L 03/15/20 05:30 Carbon Dioxide 25 mmol/L (22-30) 03/15/20 05:30 Anion Gap 15 (5-19) 03/15/20 05:30 BUN 49 mg/dL (7-20) H 03/15/20 05:30 Creatinine 11.97 mg/dL (0.52-1.25) H 03/15/20 05:30 Est GFR ( Amer) 4 (>60) L 03/15/20 05:30 Est GFR (MDRD) Non-Af 4 (>60) L 03/15/20 05:30 Glucose 122 mg/dL (75-110) H 03/15/20 05:30 Lactic Acid 1.0 mmol/L (0.7-2.1) 03/13/20 08:20 Calcium 8.4 mg/dL (8.4-10.2) 03/15/20 05:30 Total Bilirubin 0.8 mg/dL (0.2-1.3) 03/13/20 08:20 Direct Bilirubin 0.5 mg/dL (0.0-0.4) H 03/13/20 08:20 Neonat Total Bilirubin Not Reportable 03/13/20 08:20 Neonat Direct Bilirubin Not Reportable 03/13/20 08:20 Neonat Indirect Bili Not Reportable 03/13/20 08:20 AST 20 U/L (14-36) 03/13/20 08:20 ALT 11 U/L (<35) 03/13/20 08:20 Alkaline Phosphatase 129 U/L (38-126) H 03/13/20 08:20 Creatine Kinase 120 U/L (30-135) 03/13/20 09:33 Troponin I 0.032 ng/mL 03/13/20 11:45 NT-Pro-B Natriuret Pep 87638 pg/mL (<125) H 03/13/20 11:45 Total Protein 8.0 g/dL (6.3-8.2) 03/13/20 08:20 Albumin 4.5 g/dL (3.5-5.0) 03/13/20 08:20 SARS-CoV-2 (PCR) NEGATIVE (NEGATIVE) 03/13/20 12:09 03/13/20 03/13/20 09:33 11:45 Troponin I Cancelled 0.032 NT-Pro-B Natriuret Pep Cancelled [id number] H Impressions: Chest X-Ray 03/13/20 07:56 IMPRESSION: Bibasilar predominant consolidation and ground-glass attenuation which may represent edema or multifocal infectious/inflammatory process of which viral pneumonia (Covid-19) is a consideration. Findings discussed with Dr. Ramirez at 0925 hours on 03/13/2020. Plan Time Spent: Greater than 30 Minutes Stroke Is this a Stroke Patient?: No Acute Heart Failure - Is this a Heart Failure Patient?: No
[2020-03-19] MEDS ORDERED: CLONIDINE 0.3 MG/24 HR PATCH.TDWK TOP SCH (10:00)
== END 2020-03-15 10:25 | disposition home or self-care (01) | DRG 871 ==
LOC: ER 07:35 → EH 12:57 → ICU 13:17 → 3W 18:20
PROVIDERS: ADMIT Family Medicine; ATTEND Family Medicine
PROC: 5A1D70Z Performance of Urinary Filtration, Intermittent, Less than 6 Hours Per Day (ICD-10-PCS; principal; 2020-03-13)
DX: A41.9 Sepsis, unspecified organism (principal); J69.0 Pneumonitis due to inhalation of food and vomit; N18.6 End stage renal disease; J96.01 Acute respiratory failure with hypoxia; I16.1 Hypertensive emergency; N25.81 Secondary hyperparathyroidism of renal origin; I12.0 Hypertensive chronic kidney disease with stage 5 chronic kidney disease or end stage renal disease; R65.20 Severe sepsis without septic shock; K04.7 Periapical abscess without sinus; D63.1 Anemia in chronic kidney disease; Z20.828 Contact with and (suspected) exposure to other viral communicable diseases; E78.5 Hyperlipidemia, unspecified; J44.9 Chronic obstructive pulmonary disease, unspecified; Z79.899 Other long term (current) drug therapy; Z91.11 Patient's noncompliance with dietary regimen; Z91.14 Patient's other noncompliance with medication regimen; Z88.6 Allergy status to analgesic agent
CPT/HCPCS: 36415; 71045; 80048; 80053; 82550; 83605; 83880; 84484; 85025; 87040; 87077; 87150; 87186; 87635; 93005; 93010; 96365; 96367; 96375; 99291; C9803; J0360; J0456; J0696; J1644; J2060; J2405; J2543

== ENCOUNTER 2020-06-22 08:45 | Day surgery (SDC) | payer MEDICARE, MEDICAID ==
[~2020-06-22 08:45] MED LIST: PROPOFOL INJ 200 MG/20 ML VIAL IV ONE
[2020-06-22] MEDS ORDERED: ONABOTULINUMTOXINA INJ/PF 100 UNIT SDV IJ ONE (10:45)
--- NOTE | 2020-06-22 10:51 | Operative Report ---
Operative Report DATE OF SURGERY: 06/22/20 Operative Report: The risks benefits and alternatives of the procedure explained to the patient in detail and informed consent is obtained.A GIF Olympus video scope was inserted into the patient's mouth and hypopharynx ,the esophagus is identified intubated and insufflated ,the scope was then advanced through the esophagus stomach and duodenum ,retroflexion maneuver is done, the esophagus stomach and first and second portions of the duodenum examined PREOPERATIVE DIAGNOSIS: Nausea vomiting POSTOPERATIVE DIAGNOSIS: Gastritis status post [id number] units of Botox injected at the gastric outlet, 4 mL of fluid for 25 unit/mL injection OPERATION: EGD with Botox injection. EGD with biopsy SURGEON: VIANEY HOWARD ANESTHESIA: LMAC TISSUE REMOVED OR ALTERED: As noted above. COMPLICATIONS: None. ESTIMATED BLOOD LOSS: None. INTRAOPERATIVE FINDINGS: As noted above. PROCEDURE: Patient tolerated the procedure well. No immediate postprocedure complications are noted. Patient is discharged in good condition. Discharge date 06/22/2020. Discharge diet: Regular. Discharge activity: Regular. 2 to 3-week follow-up to discuss findings. Patient is instructed to call the office or proceed to the emergency room should there be any further problems or questions. Wait on the pathology.
[2020-06-22 11:55] VITALS: BP 161/83
== END 2020-06-22 11:50 | disposition home or self-care (01) ==
LOC: END 08:45
PROVIDERS: ATTEND Internal Medicine Gastroenterology
DX: K29.70 Gastritis, unspecified, without bleeding (principal); E11.22 Type 2 diabetes mellitus with diabetic chronic kidney disease; I12.0 Hypertensive chronic kidney disease with stage 5 chronic kidney disease or end stage renal disease; N18.5 Chronic kidney disease, stage 5; E11.40 Type 2 diabetes mellitus with diabetic neuropathy, unspecified; E11.3593 Type 2 diabetes mellitus with proliferative diabetic retinopathy without macular edema, bilateral; Z99.2 Dependence on renal dialysis; Z79.899 Other long term (current) drug therapy; Z79.4 Long term (current) use of insulin; Z03.818 Encounter for observation for suspected exposure to other biological agents ruled out
CPT/HCPCS: 43239; 88342 ×2; 88305 ×2; 00731; U0003; J2704; J0585; C9803; 731; 87635